=== PATIENT | male | born 1945 ===

== ENCOUNTER 2024-12-23 06:00 | Day surgery (SDC) | payer OTHER ==
[2024-12-15 10:40] VITALS: BP 135/74
[~2024-12-23] VITALS: Ht 167.6 cm; Wt 54.4 kg
[2024-12-23] MEDS ORDERED: CEFTRIAXONE SODIUM 2,000 MG VIAL ONE (07:07)
[2024-12-23] MEDS ORDERED: METRONIDAZOLE/SODIUM CHLORIDE 500 MG/100 ML PIGGYBACK IV ONE (07:07)
[2024-12-23] MEDS ORDERED: HEMOSTATIC MATRIX 1 KIT KIT TOP ONE (07:10)
[2024-12-23] MEDS ORDERED: POVIDONE-IODINE 118 ML BOTT TOP ONE (07:10)
[2024-12-23] MEDS ORDERED: DIBUCAINE 30 GM TUBE ONE (07:10)
[2024-12-23] MEDS ORDERED: BUPIVACAINE HCL/MPF 0.5% 30ML VIAL ONE (07:11)
[2024-12-23] MEDS ORDERED: LIDOCAINE HCL 1%/EPINEPHRINE 20ML VIAL IJ ONE (07:11)
[2024-12-23] MEDS ORDERED: TAMSULOSIN HCL 0.4 MG CAP PO ONE ×2 (10:30→11:19)
[2024-12-23] MEDS ORDERED: OXYCODONE HCL5 MG PO (10:38)
== END 2024-12-23 12:30 | disposition home or self-care (01) ==
LOC: CIR.AMB 06:00
PROVIDERS: ATTEND Surgery
DX: K64.2 Third degree hemorrhoids (principal); K62.82 Dysplasia of anus; K64.4 Residual hemorrhoidal skin tags; K62.5 Hemorrhage of anus and rectum